=== PATIENT | female | born 1945 | race Caucasian/White ===

== ENCOUNTER 2018-04-08 16:29 | Emergency (ER) | payer OTHER ==
[~2018-04-08] VITALS: Ht 152.4 cm; Wt 63.5 kg
[~2018-04-08 16:29] MED LIST: ALBU90OI61 INH; ALEN10 PO; AMLO10 PO; ANUCORT HC PR; ATEN50 PO; AZEL.05OP OD; CALCIUM CITRATE PO; CIPR500 PO; CONESTTC PV; DOCU100 PO; FAMO20 PO; FLUSAL2505 IH; FLUT.05NI; FLUT220OIA IH; HYDACE25S PR; HYDCHL25 PO; LISHYD2025 PO; LISI20 PO; LORA10ER PO; MELO7.5 PO; OMEP20ER PO; OXYB5 PO; POLY500 PO; POTCHL20ER PO; PROM25 PO; RXERYTOPTH OP; SULTRIDS PO; TRAM50 PO; VITAMIN D PO
[2018-04-08] MEDS ORDERED: Robaxin500 MG PO (17:16)
[2018-04-08] MEDS ORDERED: IBUP600 PO (17:17)
== END 2018-04-08 18:25 | disposition home or self-care (01) ==
LOC: ER 16:29
DX: M53.3 Sacrococcygeal disorders, not elsewhere classified (principal); Z88.8 Allergy status to other drugs, medicaments and biological substances; Z88.0 Allergy status to penicillin; Z79.899 Other long term (current) drug therapy; I10 Essential (primary) hypertension
CPT/HCPCS: 96372; 99284; J3010

== ENCOUNTER 2018-05-29 13:09 | Day surgery (SDC) | payer OTHER ==
[~2018-05-29] VITALS: Ht 154.9 cm; Wt 60.1 kg
[~2018-05-29 13:09] MED LIST changes: +IBUP600 PO; +Robaxin500 MG PO
== END 2018-05-29 15:06 | disposition home or self-care (01) ==
LOC: ORSCSDS 13:09
PROVIDERS: Surgery
PROC: 0DBM8ZX Excision of Descending Colon, Via Natural or Artificial Opening Endoscopic, Diagnostic (ICD-10-PCS; principal; 2018-05-29 14:30)
DX: Z12.11 Encounter for screening for malignant neoplasm of colon (principal); D12.4 Benign neoplasm of descending colon; K57.30 Diverticulosis of large intestine without perforation or abscess without bleeding; K64.8 Other hemorrhoids; Z86.010 Personal history of colon polyps; I10 Essential (primary) hypertension; J45.909 Unspecified asthma, uncomplicated; E78.5 Hyperlipidemia, unspecified; G47.33 Obstructive sleep apnea (adult) (pediatric); Z79.899 Other long term (current) drug therapy; F17.210 Nicotine dependence, cigarettes, uncomplicated
CPT/HCPCS: 88305; J7120

== ENCOUNTER → 2019-10-26 | Outpatient (CLI) | payer OTHER ==
[2019-10-28 14:07] LABS: HPV 16 Negative (Negative); HPV 18 Negative (Negative); HPV OTHER HR TYPES Negative (Negative)
== END | disposition home or self-care (01) ==
LOC: LAB 12:28 → LAB SHORT 12:28
PROVIDERS: Nurse Practitioner Women's Health
DX: Z12.72 Encounter for screening for malignant neoplasm of vagina (principal); R87.612 Low grade squamous intraepithelial lesion on cytologic smear of cervix (LGSIL); Z91.89 Other specified personal risk factors, not elsewhere classified
CPT/HCPCS: 87624; G0123

== ENCOUNTER 2021-03-16 09:05 | Day surgery (SDC) | payer OTHER ==
[~2021-03-16] VITALS: Ht 152.4 cm; Wt 62.3 kg
== END 2021-03-16 10:25 | disposition home or self-care (01) ==
LOC: ORSCSDS 09:05
PROVIDERS: Student in an Organized Health Care Education/Training Program
PROC: 0DB48ZX Excision of Esophagogastric Junction, Via Natural or Artificial Opening Endoscopic, Diagnostic (ICD-10-PCS; principal; 2021-03-16 10:15)
PROC: 0DB68ZX Excision of Stomach, Via Natural or Artificial Opening Endoscopic, Diagnostic (ICD-10-PCS; principal; 2021-03-16 10:15)
PROC: 0DB98ZX Excision of Duodenum, Via Natural or Artificial Opening Endoscopic, Diagnostic (ICD-10-PCS; principal; 2021-03-16 10:15)
DX: R10.13 Epigastric pain (principal); K21.9 Gastro-esophageal reflux disease without esophagitis; K31.7 Polyp of stomach and duodenum; I10 Essential (primary) hypertension; I25.10 Atherosclerotic heart disease of native coronary artery without angina pectoris; K29.70 Gastritis, unspecified, without bleeding; K44.9 Diaphragmatic hernia without obstruction or gangrene; Z79.899 Other long term (current) drug therapy
CPT/HCPCS: 88305; 88342; J2704; J7120

== ENCOUNTER 2021-04-25 06:53 | Day surgery (SDC) | payer OTHER ==
[~2021-04-25] VITALS: Ht 152.4 cm; Wt 59.6 kg
[2021-04-25] MEDS ORDERED: QVAR REDIHALE10.6 G3 (09:03)
--- NOTE | 2021-04-25 09:13 | NUR ---
04/25/21 0913 Gala ElderMartina SEE SECOND ACCOUNT WITH SAME F# FOR ALL PRE-OP/ADMITTING INFORMATION. COLONOSCOPY SCHEDULED IMMEDIATELY FOLLOWED BY HEMORRHOIDECTOMY, BOTH TO BE COMPLETED IN OR UNDER GENERAL ANESTHESIA.
--- NOTE | 2021-04-25 10:10 | NUR ---
04/25/21 1010 Paloma Truong COLONSCOPY DONE PRIOR TO HEMORRHOIDECTOMY
--- NOTE | 2021-04-25 10:25 | NUR ---
04/25/21 1025 Gala Elder (Martina SEE OTHER ACCOUNT WITH SAME [id number] FOR PACU & STEPDOWN INFORMATION.
== END 2021-04-25 10:51 | disposition home or self-care (01) ==
LOC: ORSCSDS 06:53 → ORSCMMR 07:30 → ORD 07:30 → ORSCMMR 09:15 → ORSCSDS 10:51
PROVIDERS: Surgery
PROC: 0DJD8ZZ Inspection of Lower Intestinal Tract, Via Natural or Artificial Opening Endoscopic (ICD-10-PCS; principal; 2021-04-25 09:15)
PROC: 06BY0ZC Excision of Hemorrhoidal Plexus, Open Approach (ICD-10-PCS; principal; 2021-04-25 09:15)
DX: K62.5 Hemorrhage of anus and rectum (principal); K64.8 Other hemorrhoids; R19.4 Change in bowel habit; Z85.038 Personal history of other malignant neoplasm of large intestine; E78.5 Hyperlipidemia, unspecified; I10 Essential (primary) hypertension; G47.33 Obstructive sleep apnea (adult) (pediatric); K21.9 Gastro-esophageal reflux disease without esophagitis; J45.909 Unspecified asthma, uncomplicated; Z79.899 Other long term (current) drug therapy; Z87.891 Personal history of nicotine dependence
CPT/HCPCS: 88304; J1100; J2370; J2405; J2704; J3010; J7120

== ENCOUNTER 2024-05-15 09:12 | Day surgery (SDC) | payer OTHER ==
[~2024-05-15] VITALS: Ht 152.4 cm; Wt 57.4 kg
[~2024-05-15 09:12] MED LIST changes: +Acetaminophen650 M1 PO; +Lactated Ringer's 1,000 ML IV SCH; +MAGNESIUM OXID500 MG PO; +QVAR REDIHALE10.6 G3
[2024-05-15] MEDS ORDERED: propofoL 0 ML IV ONE ×2 (10:03→11:31)
[2024-05-15 10:16] VITALS: BP 122/68
[2024-05-15] MEDS ORDERED: propofoL 20 ML IV ONE ×2 (11:30)
[2024-05-15] MEDS ORDERED: Ondansetron HCl 2 MG / ML 2ML Vial ONE (11:31)
[2024-05-15] MEDS ORDERED: Flumazenil 0.1 MG / ML 5ML Vial ONE (11:34)
[2024-05-15] MEDS ORDERED: Lactated Ringer's 1,000 ML IV ONE (11:34)
[2024-05-15 12:33] VITALS: BP 94/62
[2024-05-15 12:36] VITALS: BP 105/66
[2024-05-15 12:41] VITALS: BP 122/66
[2024-05-15] MEDS ORDERED: Lactated Ringer's 1,000 ML IV SCH (13:35)
== END 2024-05-15 12:55 | disposition home or self-care (01) ==
LOC: ORSCMMR 09:12 → ORD 11:00 → ORSCMMR 11:00
PROVIDERS: Surgery
PROC: 0DJD8ZZ Inspection of Lower Intestinal Tract, Via Natural or Artificial Opening Endoscopic (ICD-10-PCS; principal; 2024-05-15 11:00)
DX: R15.0 Incomplete defecation (principal); I10 Essential (primary) hypertension; G47.30 Sleep apnea, unspecified; J45.909 Unspecified asthma, uncomplicated; E78.5 Hyperlipidemia, unspecified; E11.9 Type 2 diabetes mellitus without complications; K21.9 Gastro-esophageal reflux disease without esophagitis; Z87.891 Personal history of nicotine dependence; Z79.899 Other long term (current) drug therapy
CPT/HCPCS: J2405; J2704; J7120

== ENCOUNTER → 2024-12-08 | Outpatient (CLI) | payer OTHER ==
[~2024-12-08] MED LIST changes: -Lactated Ringer's 1,000 ML IV SCH
[2024-12-08 10:45] LABS: BASOPHILS ABSOLUTE AUTO 0.03 K/mm3 (0.00-0.23); BASOPHILS PERCENT AUTO 0 % (0-2); EOSINOPHILS ABSOLUTE AUTO 0.11 K/mm3 (0.00-0.68); EOSINOPHILS PERCENT AUTO 2 % (0-6); Hematocrit 36.9 % (33.0-51.0); IMMATURE GRAN ABSOLUTE AUTO 0.03 K/mm3 (0.00-0.10); IMMATURE GRAN PERCENT AUTO 0 % (0-1); LYMPHOCYTES ABSOLUTE AUTO 2.11 K/mm3 (0.84-5.20); LYMPHOCYTES PERCENT AUTO 28 % (21-46); MONOCYTES ABSOLUTE AUTO 0.53 K/mm3 (0.16-1.47); MONOCYTES PERCENT AUTO 7 % (4-13); Mean Corpuscular HGB 27.5 pg (26.0-34.0); Mean Corpuscular HGB Conc 32.5 g/dL (31.5-36.5); Mean Corpuscular Volume 84 fL (80-100); Mean Platelet Volume 9.7 fL (9.1-12.4); NEUTROPHILS ABSOLUTE AUTO 4.69 K/mm3 (1.96-9.15); NEUTROPHILS PERCENT AUTO 63 % (41-73); Platelet Count 460 K/mm3 (150-400); RDW Coefficient Variation 15.7 % (11.7-14.2); RDW Standard Deviation 48.2 fL (35.1-46.3); Red Blood Cell Count 4.37 M/mm3 (3.80-5.20)
[2024-12-08 10:55] LABS: Albumin, Blood 3.6 g/dL (3.4-5.0); Albumin/Globulin Ratio 0.9 (0.8-1.8); Bilirubin, Total 0.8 mg/dL (0.1-1.0); Bun/Creatinine Ratio 14.4 (12.0-20.0); Calcium, Blood 9.1 mg/dL (8.5-10.1); Creatinine, Blood 0.97 mg/dL (0.40-1.00); Magnesium, Blood 1.9 mg/dL (1.6-2.4); Potassium, Blood 3.4 mmol/L (3.5-5.5); Total Protein, Blood 7.6 g/dL (6.4-8.2)
[2024-12-08 17:34] LABS: Adenovirus F 40/41 Not Detected (NOT DETECT); Astrovirus Not Detected (NOT DETECT); Campylobacter Sp Not Detected (NOT DETECT); Cryptosporidium Not Detected (NOT DETECT); Cyclospora Cayetanensis Not Detected (NOT DETECT); E. Coli O157 Not Detected (NOT DETECT); Entamoeba Histolytica Not Detected (NOT DETECT); Enteroaggregative E. coli-EAEC Not Detected (NOT DETECT); Enteropathogenic E. coli-EPEC Not Detected (NOT DETECT); Enterotoxigenic E. coli-ETEC Not Detected (NOT DETECT); Giardia Lamblia Not Detected (NOT DETECT); Norovirus GI/GII Not Detected (NOT DETECT); Plesiomonas Shigelloides Not Detected (NOT DETECT); Rotavirus A Not Detected (NOT DETECT); Salmonella Sp Not Detected (NOT DETECT); Sapovirus Not Detected (NOT DETECT); Shiga Toxin-prod E. coli-STEC Not Detected (NOT DETECT); Shigella/Enteroin E. coli-EIEC Not Detected (NOT DETECT); Vibrio Cholerae Not Detected (NOT DETECT); Vibrio Sp Not Detected (NOT DETECT); Yersinia Enterocolitica Not Detected (NOT DETECT)
== END | disposition home or self-care (01) ==
LOC: LAB 10:39 → LAB SHORT 10:39
PROVIDERS: Chiropractor
DX: R10.9 Unspecified abdominal pain (principal); R19.7 Diarrhea, unspecified; R74.8 Abnormal levels of other serum enzymes
CPT/HCPCS: 80053; 82977; 83690; 83735; 85025; 87507

== ENCOUNTER 2025-03-12 06:27 | Day surgery (SDC) | payer OTHER ==
[~2025-03-12] VITALS: Ht 154.9 cm; Wt 57.1 kg
[2025-03-12] MEDS ORDERED: GABA100 (06:51)
[2025-03-12] MEDS ORDERED: Lactated Ringer's 1,000 ML IV ONE ×2 (07:37→07:48)
[2025-03-12] MEDS ORDERED: Benzocaine Oral Spray 0.5ML UD ONE (07:43)
[2025-03-12] MEDS ORDERED: propofoL 50 ML IV ONE (07:44)
[2025-03-12 09:10] VITALS: BP 112/73
== END 2025-03-12 08:55 | disposition home or self-care (01) ==
LOC: ORSCSDS 06:27
PROVIDERS: Internal Medicine Gastroenterology
PROC: 0DB98ZX Excision of Duodenum, Via Natural or Artificial Opening Endoscopic, Diagnostic (ICD-10-PCS; principal; 2025-03-12 08:00)
PROC: 0DB58ZX Excision of Esophagus, Via Natural or Artificial Opening Endoscopic, Diagnostic (ICD-10-PCS; principal; 2025-03-12 08:00)
PROC: 0D758ZZ Dilation of Esophagus, Via Natural or Artificial Opening Endoscopic (ICD-10-PCS; principal; 2025-03-12 08:00)
DX: K22.70 Barrett's esophagus without dysplasia (principal); K21.9 Gastro-esophageal reflux disease without esophagitis; K22.2 Esophageal obstruction; K44.9 Diaphragmatic hernia without obstruction or gangrene; R19.7 Diarrhea, unspecified; I10 Essential (primary) hypertension; J44.89 Other specified chronic obstructive pulmonary disease; G47.33 Obstructive sleep apnea (adult) (pediatric); Z87.891 Personal history of nicotine dependence; R73.03 Prediabetes; Z79.899 Other long term (current) drug therapy; F41.9 Anxiety disorder, unspecified
CPT/HCPCS: 82947; 88305; A9270; C1726; J2704; J7120